=== PATIENT | female | born 1990 | race Caucasian/White ===

== ENCOUNTER 2016-05-29 07:20 | Emergency (ER) | payer MEDICAID ==
[~2016-05-29] VITALS: Ht 149.9 cm; Wt 71.2 kg
[~2016-05-29 07:20] MED LIST: ABILIFY10 MG PO; AMOXIL250 MG PO; BACTRIM DS 8001 TAB PO; BACTROBAN21 NS; BENADRYL 25MG C25 MG PO; DIFLUCAN150 MG PO; FLINTSTONES W/I1 CTB; FLINTSTONES W/I1 CTB PO; HYDROCODONE1 TABLET PO; LORTAB 5/500 501 TAB PO; MOTRIN400 MG PO; NAPROSYN 375MG375 MG PO; NIFEDIPINE 10MG10 MG; PERCOCET 5/3251 EACH PO; ROBAXIN-750750 MG PO
[2016-05-29] MEDS ORDERED: Tri-Sprintec 281 TAB PO (07:32)
--- NOTE | 2016-05-29 07:41 | Emergency Room Report ---
History of Present Illness Time Seen by 07Sheryl Presenting Problem in Triage Pt arrived:Walked Presenting Problem:HEMORRHOIDS X 3 DAYS HISTORY OF HAVING ISSUES RECTALLY WITH EXTERNAL HEMORRHOIDS; HAD ONE CUT OU PREVIOUSLY. 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 N Clinical Suspician of Infection? N Mental Status: 1 - Regular (Normal Baseline) Sepsis Risk:Low Sepsis Risk Have you (or family members/close friends) recently traveled outside the [place]? N If Yes, where/when: Have you had exposure to infectious disease within the past month? TB? Other? Specify: Source patient, RN notes reviewed, family, old records Exam Limitations no limitations Comment pt with hemmorroid w/o bleeding with pain over the last few days - has hx of hemmorroids Cardiac Chest Pain Chest pain indicative of cardiac No Timing/Duration this morning Severity moderate ALLERGIES Coded Allergies: No Known Allergies (05/29/16) Home Medications Reported Medications NORGESTIMATE-ETHINYL ESTRADIOL (Tri-Sprintec Tablet) 1 TAB PO DAILY #28 History Medical History General Angina: No DC: No Hypertension? Yes Hyperlipidemia? No CHF? No COPD? No Asthma? Yes Hernia? No CVA? No Seizures? No Diabetes? No End Stage Renal Disease? No UTI? Yes Stones? No GB Disease: No Nephritic Syndrome? No Asplenia? No Hepatitis? No Sickle Cell Disease? No Cataracts? No Glaucoma? No MRSA? No TB? No Cancer? 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 Respiratory denies cough, denies shortness of breath, denies wheezing Cardiovascular denies chest pain, denies syncope Gastrointestinal see HPI, denies abdominal pain, denies diarrhea, denies vomiting, other Genitourinary denies: dysuria, frequency, hesitancy, hematuria. Musculoskeletal denies back pain, denies joint pain, denies joint swelling, denies neck pain Skin denies rash Psychiatric/Neurological denies headache, denies seizure Physical Exam Vital Signs Vital Signs Date Time Temp Pulse Resp B/P Pulse O2 O2 Flow FiO2 Ox Delivery Rate 05/29 0727 98.2 77 18 129/80 98 - WBC >12,000 or <4,000 or 10% bands? 2 or more SIRS Criteria Met? B/P:129/80 MAP:96 Creatinine >2.0? UA output<0.5ml/kg/hr for 2 hrs? Platelet count >100,000? Lactate >2.0mmol/1? INR >1.2 or PTT > than 60 sec? Evidence of Organ Dysfunction? Provider documented clinical suspician of infection? N Sepsis Criteria Count: 0 Sepsis Risk: Low Sepsis Risk General Appearance no apparent distress Eye Exam - bilateral eye PERRL, bilateral eye EOMI Ear, Nose, Throat normal ENT inspection Neck non-tender Respiratory Status No: respiratory distress. Cardiovascular regular rate/rhythm Peripheral Pulses Pulses normal Yes Gastrointestinal soft Extremities normal inspection Strength 4 Upper Ext (L), 4 Upper Ext (R), 4 Lower Ext (L), 4 Lower Ext (R) Rectal hemorrhoids Nurse present during exam? 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 No Results/Orders Current Medication Orders Sig/Nelly Start time Last Medication Dose Route Stop Time Status Admin Lidocaine HCl 20 ML ONCE ONE 05/29 0800 DC 05/29 [place] 05/29 0801 0758 Lidocaine HCl 0 .STK-MED ONE 05/29 0751 DC .ROUTE Procedures Incision and Drainage Incision and Drainage Risks/benefits discussed with pt/guardian? Yes Problem type Other, hemmorroid Location rectal Size cm 2.0 Anesthesia Lidocaine 1% Blade Size 15 I & D Procedure Simple, betadine prep, sterile drapes applied, Scalpel incision cm- (clot removed ). no: Complex, Needle aspiration. Departure Departure Time of Disposition 08 Disposition DC Home or Self Care(routine) Clinical Impression Primary Impression: Hemorrhoid Qualifiers: Hemorrhoid type: unspecified Qualified Code: K64.9 - Unspecified hemorrhoids Condition STABLE Referrals SAURABH MARLOW MD Patient Instructions DI for Hemorrhoids Additional Instructions use cream and see surg and pcp for follow up Discharge Counseling Counseled pt/family regarding diagnosis, medications/RX, follow up needs Prescriptions Current Visit Scripts Lidocaine (Recticare) 5 DEANA RC TID #1 GM ACETAMINOPHEN WITH CODEINE (Tylenol With Codeine #3 Tablet) 1 TAB PO TID #10 TAB ED Critical Care Critical Care No at 0811
--- NOTE | 2016-05-29 07:41 | Emergency Room Report ---
History of Present Illness Time Seen by 07Sheryl Presenting Problem in Triage Pt arrived:Walked Presenting Problem:HEMORRHOIDS X 3 DAYS HISTORY OF HAVING ISSUES RECTALLY WITH EXTERNAL HEMORRHOIDS; HAD ONE CUT OU PREVIOUSLY. 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 N Clinical Suspician of Infection? N Mental Status: 1 - Regular (Normal Baseline) Sepsis Risk:Low Sepsis Risk Have you (or family members/close friends) recently traveled outside the [place]? N If Yes, where/when: Have you had exposure to infectious disease within the past month? TB? Other? Specify: Source patient, RN notes reviewed, family, old records Exam Limitations no limitations Comment pt with hemmorroid w/o bleeding with pain over the last few days - has hx of hemmorroids Cardiac Chest Pain Chest pain indicative of cardiac No Timing/Duration this morning Severity moderate ALLERGIES Coded Allergies: No Known Allergies (05/29/16) Home Medications Reported Medications NORGESTIMATE-ETHINYL ESTRADIOL (Tri-Sprintec Tablet) 1 TAB PO DAILY #28 History Medical History General Angina: No PA: No Hypertension? Yes Hyperlipidemia? No CHF? No COPD? No Asthma? Yes Hernia? No CVA? No Seizures? No Diabetes? No End Stage Renal Disease? No UTI? Yes Stones? No GB Disease: No Nephritic Syndrome? No Asplenia? No Hepatitis? No Sickle Cell Disease? No Cataracts? No Glaucoma? No MRSA? No TB? No Cancer? 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 Respiratory denies cough, denies shortness of breath, denies wheezing Cardiovascular denies chest pain, denies syncope Gastrointestinal see HPI, denies abdominal pain, denies diarrhea, denies vomiting, other Genitourinary denies: dysuria, frequency, hesitancy, hematuria. Musculoskeletal denies back pain, denies joint pain, denies joint swelling, denies neck pain Skin denies rash Psychiatric/Neurological denies headache, denies seizure Physical Exam Vital Signs Vital Signs Date Time Temp Pulse Resp B/P Pulse O2 O2 Flow FiO2 Ox Delivery Rate 05/29 0727 98.2 77 18 129/80 98 - WBC >12,000 or <4,000 or 10% bands? 2 or more SIRS Criteria Met? B/P:129/80 MAP:96 Creatinine >2.0? UA output<0.5ml/kg/hr for 2 hrs? Platelet count >100,000? Lactate >2.0mmol/1? INR >1.2 or PTT > than 60 sec? Evidence of Organ Dysfunction? Provider documented clinical suspician of infection? N Sepsis Criteria Count: 0 Sepsis Risk: Low Sepsis Risk General Appearance no apparent distress Eye Exam - bilateral eye PERRL, bilateral eye EOMI Ear, Nose, Throat normal ENT inspection Neck non-tender Respiratory Status No: respiratory distress. Cardiovascular regular rate/rhythm Peripheral Pulses Pulses normal Yes Gastrointestinal soft Extremities normal inspection Strength 4 Upper Ext (L), 4 Upper Ext (R), 4 Lower Ext (L), 4 Lower Ext (R) Rectal hemorrhoids Nurse present during exam? 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 No Results/Orders Current Medication Orders Sig/Nelly Start time Last Medication Dose Route Stop Time Status Admin Lidocaine HCl 20 ML ONCE ONE 05/29 0800 DC 05/29 [place] 05/29 0801 0758 Lidocaine HCl 0 .STK-MED ONE 05/29 0751 DC .ROUTE Procedures Incision and Drainage Incision and Drainage Risks/benefits discussed with pt/guardian? Yes Problem type Other, hemmorroid Location rectal Size cm 2.0 Anesthesia Lidocaine 1% Blade Size 15 I & D Procedure Simple, betadine prep, sterile drapes applied, Scalpel incision cm- (clot removed ). no: Complex, Needle aspiration. Departure Departure Time of Disposition 08 Disposition DC Home or Self Care(routine) Clinical Impression Primary Impression: Hemorrhoid Qualifiers: Hemorrhoid type: unspecified Qualified Code: K64.9 - Unspecified hemorrhoids Condition STABLE Referrals SAURABH MARLOW MD Patient Instructions DI for Hemorrhoids Additional Instructions use cream and see surg and pcp for follow up Discharge Counseling Counseled pt/family regarding diagnosis, medications/RX, follow up needs Prescriptions Current Visit Scripts Lidocaine (Recticare) 5 DEANA RC TID #1 GM ACETAMINOPHEN WITH CODEINE (Tylenol With Codeine #3 Tablet) 1 TAB PO TID #10 TAB ED Critical Care Critical Care No at 0811
[2016-05-29] MEDS ORDERED: TYLENOL WITH CO1 TA1 PO (08:11)
[2016-05-29] MEDS ORDERED: RECTICARE5% RC (08:11)
[2016-05-29 08:30] VITALS: BP 131/75
== END 2016-05-29 08:30 | disposition home or self-care (01) ==
LOC: ER 07:20
DX: K64.9 Unspecified hemorrhoids (principal)